=== PATIENT | male | born 1975 | race Caucasian/White ===

== ENCOUNTER → 2017-11-20 | Outpatient (CLI) | payer OTHER | LOC: BMCIMAGING 15:27 | PROVIDERS: ATTEND Family Medicine | DX: S92.521A Displaced fracture of middle phalanx of right lesser toe(s), initial encounter for closed fracture (principal) ==

== ENCOUNTER → 2018-06-17 | Outpatient (CLI) | payer OTHER | LOC: BMCIMAGING 11:57 | PROVIDERS: ATTEND Emergency Medicine | DX: S82.61XA Displaced fracture of lateral malleolus of right fibula, initial encounter for closed fracture (principal) ==